=== PATIENT | male | born 1940 | race Caucasian/White ===

== ENCOUNTER 2018-03-25 07:35 | Outpatient (CLI) | payer MEDICARE, OTHER ==
[2018-03-25] MEDS ORDERED: ADENOSINE 60 MG/20 ML VIAL ONE (11:29)
--- NOTE | 2018-03-25 12:14 | NM ---
RADIONUCLIDE STRESS AND REST MYOCARDIAL PERFUSION SCAN WITH CT ATTENUATION CORRECTION AND SPECT IMAGI NG WITH LEFT VENTRICULAR WALL MOTION EVALUATION AND EJECTION FRACTION: HISTORY: Chest pain. Hypertension. FINDINGS: Adenosine protocol. There is heterogeneous uptake of radiotracer throughout the left ventricular myocardium. A large area of markedly diminished uptake involving the inferior wall on the stress images shows significant imp rovement on the rest images with only a small focus of diminished uptake. QGS analysis of gated SPECT images shows no focal wall motion abnormalities. Ejection fraction calcul ated at 58%. IMPRESSION: 1. Abnormal exam. Reversibility at the inferior wall is suggestive of ischemia. 2. Preserved left ventricular ejection fraction. POS: JAMES
== END 2018-03-25 07:36 | disposition home or self-care (01) ==
LOC: NM 07:35
PROVIDERS: ATTEND Internal Medicine
DX: R07.9 Chest pain, unspecified (principal); R94.39 Abnormal result of other cardiovascular function study
CPT/HCPCS: 78452; A9500; 93017; J0153

== ENCOUNTER 2020-05-18 10:57 | Outpatient (CLI) | payer MEDICARE, OTHER ==
[2020-05-18 12:45] LABS: #Eosinphils 0.3 10x3/uL (0.0-0.5); #Monocytes 0.6 10x3/uL (0.0-1.1); #Neutrophils 5.1 10x3/uL (1.5-8.4); %Basophils 0.3 % (0.0-2.0); %Lymphocytes 17.2 % (18.0-47.0); %Neutrophils 69.9 % (40.0-75.0); Hemoglobin 14.1 g/dL (13.5-17.5); Mean Corpuscular HGB CONC 31.3 g/dL (32.0-36.0); Mean Corpuscular Hemoglobin 27.4 pg (27.0-33.0); Mean Corpuscular Volume 87.5 fl (81.2-95.1); Platelet Count 241 10x3/uL (150-450); RBC Distribution Width 15.4 % (11.5-14.5); Red Blood Cell (RBC) Count 5.14 10x6/uL (4.32-5.72); White Blood Cell (WBC) Count 7.3 10x3/uL (3.5-10.5)
[2020-05-18 13:01] LABS: ALT (SGPT) 20 U/L (8-55); AST (SGOT) 17 U/L (5-34); Albumin 4.3 g/dL (3.4-4.8); Alkaline Phosphatase 73 U/L (40-110); Anion Gap 15 mmol/L (10-20); BUN (Urea Nitrogen) 19 mg/dL (8.4-25.7); Bilirubin, Total 0.6 mg/dL (0.2-1.2); Calc. Creatinine Clearance 0 mL/min (70-130); Calcium 10.7 mg/dL (7.8-10.44); Carbon Dioxide 26 mmol/L (23-31); Chloride 103 mmol/L (98-107); Globulin 2.6 g/dL (2.4-3.5); Glucose 170 mg/dL (83-110); Potassium 4.1 mmol/L (3.5-5.1); Protein, Total 6.9 g/dL (5.8-8.1); Sodium 140 mmol/L (136-145)
[2020-05-18 18:02] LABS: SARS-CoV-2 PCR by NAA Not Detected (NotDetected)
== END 2020-05-18 10:58 | disposition home or self-care (01) ==
LOC: LABBT 10:57
PROVIDERS: ATTEND Internal Medicine Cardiovascular Disease
DX: Z01.812 Encounter for preprocedural laboratory examination (principal); Z20.822 Contact with and (suspected) exposure to COVID-19
CPT/HCPCS: 80053; 85025; U0003; U0005; 87635

== ENCOUNTER 2020-05-22 05:49 | Day surgery (SDC) | payer MEDICARE, OTHER ==
[2020-05-18 10:01] VITALS: BMI 30.1
[2020-05-22] MEDS ORDERED: Diazepam 5 MG TAB ONE (06:38)
[2020-05-22] MEDS ORDERED: Fentanyl 100 MCG/2 ML VIAL ONE (07:09)
[2020-05-22] MEDS ORDERED: Midazolam HCl 2 mg/2 ml Vial ONE (07:09)
[2020-05-22] MEDS ORDERED: Iopamidol 370 76% 100 ML VIAL ONE (13:19)
== END 2020-05-22 12:34 | disposition home or self-care (01) ==
LOC: CCL 05:49
PROVIDERS: ATTEND Internal Medicine Cardiovascular Disease
DX: I25.5 Ischemic cardiomyopathy (principal); I25.10 Atherosclerotic heart disease of native coronary artery without angina pectoris; E11.9 Type 2 diabetes mellitus without complications; E78.5 Hyperlipidemia, unspecified; N40.0 Benign prostatic hyperplasia without lower urinary tract symptoms; E66.9 Obesity, unspecified; Z68.30 Body mass index [BMI] 30.0-30.9, adult; Z79.01 Long term (current) use of anticoagulants; Z79.84 Long term (current) use of oral hypoglycemic drugs; Z79.899 Other long term (current) drug therapy; Z86.711 Personal history of pulmonary embolism; Z88.1 Allergy status to other antibiotic agents; Z88.2 Allergy status to sulfonamides; Z88.7 Allergy status to serum and vaccine; Z88.8 Allergy status to other drugs, medicaments and biological substances
CPT/HCPCS: 76942; 93458; 99152; J2250; J3010; Q9967

== ENCOUNTER 2020-06-19 10:09 | Outpatient (CLI) | payer MEDICARE, OTHER | END 2020-06-19 10:10 | disposition home or self-care (01) | LOC: LABBT 10:09 | PROVIDERS: ATTEND Thoracic Surgery (Cardiothoracic Vascular Surgery) | DX: Z01.818 Encounter for other preprocedural examination (principal); Z20.822 Contact with and (suspected) exposure to COVID-19 | CPT/HCPCS: 80048; 85027; 86850; 86900; 86901; 93005; U0003; U0005; 87635; 93010 ==

== ENCOUNTER 2020-06-19 10:15 | Inpatient (IN) | payer MEDICARE, OTHER ==
[2020-06-19 12:10] LABS: Mean Corpuscular HGB CONC 31.2 g/dL (32.0-36.0); Mean Corpuscular Hemoglobin 27.1 pg (27.0-33.0); Mean Platelet Volume 11.2 fl (7.4-10.4); Platelet Count 243 10x3/uL (150-450); RBC Distribution Width 15.6 % (11.5-14.5); Red Blood Cell (RBC) Count 5.16 10x6/uL (4.32-5.72); White Blood Cell (WBC) Count 8.5 10x3/uL (3.5-10.5)
[2020-06-19 12:20] LABS: Anion Gap 15 mmol/L (10-20); BUN (Urea Nitrogen) 22 mg/dL (8.4-25.7); Calc. Creatinine Clearance 0 mL/min (70-130); Calcium 10.7 mg/dL (7.8-10.44); Carbon Dioxide 23 mmol/L (23-31); Chloride 105 mmol/L (98-107); Glucose 137 mg/dL (83-110); Sodium 139 mmol/L (136-145)
[2020-06-20 02:13] LABS: SARS-CoV-2 PCR by NAA Not Detected (NotDetected)
[2020-06-22] MEDS ORDERED: Albumin 5% 500 ML ONE (06:27)
[2020-06-22] MEDS ORDERED: Midazolam HCl 2 mg/2 ml Vial ONE (06:53)
[2020-06-22] MEDS ORDERED: Fentanyl 250 MCG/5 ML VIAL ONE ×3 (07:08→10:05)
[2020-06-22] MEDS ORDERED: Midazolam HCl 5 mg/5 ml Vial ONE ×2 (07:09→10:06)
[2020-06-22] MEDS ORDERED: Papaverine 60 MG/2 ML VIAL ONE (07:36)
[2020-06-22] MEDS ORDERED: Heparin 30,000 units/30 ml VIAL ONE (07:36)
[2020-06-22] MEDS ORDERED: Rocuronium Bromide 10 MG/ML (10ML VIAL) ONE (07:36)
[2020-06-22] MEDS ORDERED: Labetalol HCl 100 MG/20 ML VIAL ONE (07:36)
[2020-06-22] MEDS ORDERED: Ondansetron PF 4 MG/2 ML Vial ONE (07:36)
[2020-06-22] MEDS ORDERED: Aminocaproic Acid 5 GM/20 ML VIAL ONE (07:36)
[2020-06-22] MEDS ORDERED: Sodium Bicarb 50 MEQ/50 ML Abboject 8.4% SYRINGE ONE (07:36)
[2020-06-22] MEDS ORDERED: Magnesium Sulfate 1 GM/2 ML VIAL ONE (07:36)
[2020-06-22] MEDS ORDERED: PROPOFOL 200 MG/20 ML VIAL ONE (07:36)
[2020-06-22] MEDS ORDERED: Nitroglycerin 50 MG/250 ML BOT ONE (07:36)
[2020-06-22] MEDS ORDERED: Calcium Chloride 1 GM/10 ML Abboject SYRINGE ONE (07:36)
[2020-06-22] MEDS ORDERED: Vecuronium 10 MG VIAL ONE (07:36)
[2020-06-22] MEDS ORDERED: Thrombin 5000 UNITS/5 ML VIAL ONE (07:36)
[2020-06-22] MEDS ORDERED: Mannitol 12.5 GM/50 ML ONE (07:36)
[2020-06-22] MEDS ORDERED: Potassium Chloride 60 MEQ/30 ML VIAL ONE (07:36)
[2020-06-22] MEDS ORDERED: Lidocaine 2% PF 100 mg/5 ml Syringe ONE (07:36)
[2020-06-22] MEDS ORDERED: Cardioplegic Soln 1,000 ML BAG ONE (07:36)
[2020-06-22] MEDS ORDERED: Protamine Sulfate 250 MG/25 ML VIAL ONE (07:36)
[2020-06-22] MEDS ORDERED: Heparin 5,000 UNITS/ML VIAL ONE (07:36)
[2020-06-22] MEDS ORDERED: PHENYLEPHRINE-NS 100 MCG/ML 10 ML SYRINGE ONE (08:13)
[2020-06-22] MEDS ORDERED: Insulin Regular 300 UNITS/3 ML VIAL ONE (08:17)
[2020-06-22] MEDS ORDERED: DOPamine 400 MG/D5W 250 ML 250 ML IVPB PRN (11:30)
[2020-06-22] MEDS ORDERED: Nitroglycerin 50 MG/250 ML BOT 250 ML IVPB PRN (11:30)
[2020-06-22] MEDS ORDERED: Mag-Al 1200 mg/1200 mg/30 ML UDCUP PO PRN (11:30)
[2020-06-22] MEDS ORDERED: Post-Op Insulin Drip Protocol IVPB ONE (11:30)
[2020-06-22] MEDS ORDERED: Guaifenesin DM 100-10/5 ML UDCUP PO PRN (11:30)
[2020-06-22] MEDS ORDERED: Norepinephrine 8 MG/0.9% NS 250 ML IVPB PRN (11:30)
[2020-06-22] MEDS ORDERED: HYDROcodone/Acetaminophen 5/325 mg Tablet PO PRN ×2 (11:30)
[2020-06-22] MEDS ORDERED: hydrALAZINE 20 MG/ML VIAL SLOW IVP PRN (11:30)
[2020-06-22] MEDS ORDERED: Hetastarch 6% 500 ML 500 ML IVPB PRN (11:30)
[2020-06-22] MEDS ORDERED: Morphine 4 MG/ML VIAL SLOW IVP PRN (11:30)
[2020-06-22] MEDS ORDERED: Magnesium 2 GM/50 ML 2 GM in Premix Bag 1 BAG IVPB SCH (11:30)
[2020-06-22] MEDS ORDERED: Bisacodyl 10 MG SUPP PR PRN (11:30)
[2020-06-22] MEDS ORDERED: Acetaminophen 325 MG TAB PO PRN (11:30)
[2020-06-22] MEDS ORDERED: Bisacodyl 5 MG TAB PO PRN (11:30)
[2020-06-22] MEDS ORDERED: Ondansetron PF 4 MG/2 ML Vial IVP PRN (11:30)
[2020-06-22] MEDS ORDERED: Fentanyl 100 MCG/2 ML VIAL SLOW IVP PRN ×2 (11:30)
[2020-06-22] MEDS ORDERED: Promethazine HCl 25 MG/ML VIAL IM PRN (11:30)
[2020-06-22] MEDS ORDERED: niCARdipine 25 MG in Sodium Chloride 0.9% 250 ML 250 ML IVPB PRN (11:30)
[2020-06-22] MEDS ORDERED: Nitroglycerin 50 MG/250 ML BOT 250 ML ONE (11:37)
[2020-06-22] MEDS: Lactated Ringer's 1,000 ML IV SCH (11:40)
[2020-06-22 11:41] LABS: Actual Bicarbonate (HCO3a) 21.9 mEq/L (22-28); Base Excess (BEa) -4.2 mEq/L (-2.0 to +3.0); CO2 Tension 43.9 mmHg (35.0-45.0); Calcium, Ionized (arterial) 1.33 mmol/L (1.12-1.30); Carboxyhemoglobin (COHb) 0.7 gm% (0.0-3.0); Hemoglobin (Hb) 13.2 g/dL (14.0-18.0); O2 Tension (PaO2), arterial 83.8 mmHg (> 60.0); Potassium - ABG Lab 3.48 mmol/L (3.70-5.30); pH, Arterial 7.32 (7.35-7.45)
[2020-06-22 11:42] LABS: ALV-art Gradient 289.125 mmHg (0-20); Puncture Site Arterial Line
[2020-06-22] MEDS ORDERED: HUMULIN R 100 UNITS in Sodium Chloride 0.9% 100 ML IVPB SCH (11:45)
[2020-06-22] MEDS ORDERED: Lantus 1000 UNITS/10 ML VIAL SC PRN (11:45)
[2020-06-22] MEDS ORDERED: Dextrose 50% Abboject 50 ML SYRINGE SLOW IVP PRN (11:45)
[2020-06-22] MEDS ORDERED: Insulin Regular 300 UNITS/3 ML VIAL SC PRN (11:45)
[2020-06-22] MEDS ORDERED: Dextrose 5% in Water 1,000 ML IV PRN (11:45)
[2020-06-22 11:55] LABS: #Eosinphils 0.2 thou/uL (0.0-0.7); #Lymphocytes 1.8 thou/uL (1.20-3.40); #Monocytes 0.6 thou/uL (0.11-0.59); #Neutrophils 15.7 thou/uL (1.40-6.50); %Basophils 0.1 % (0.0-1.0); %Eosinophils 1.2 % (0.0-10.0); %Lymphocytes 9.8 % (21.0-51.0); %Monocytes 3.4 % (0.0-10.0); %Neutrophils 85.4 % (42.0-75.0); Hemoglobin 12.5 g/dL (14.0-18.0); Mean Corpuscular HGB CONC 31.2 g/dL (32.0-36.0); Mean Corpuscular Hemoglobin 27.3 pg (27.0-31.0); Mean Corpuscular Volume 87.5 fL (78.0-98.0); Mean Platelet Volume 8.6 fL (7.4-10.4); Platelet Count 165 thou/uL (130-400); RBC Distribution Width 14.7 % (11.5-14.5); Red Blood Cell (RBC) Count 4.58 mill/uL (4.70-6.10); White Blood Cell (WBC) Count 18.3 thou/uL (4.8-10.8)
[2020-06-22] MEDS: Ketorolac Tromethamine 30 MG/ML VIAL IVP SCH ×3 (11:58→23:47)
[2020-06-22 12:13] LABS: Anion Gap 10 mmol/L (10-20); BUN (Urea Nitrogen) 22 mg/dL (8.4-25.7); Calc. Creatinine Clearance 121 mL/min (70-130); Calcium 9.9 mg/dL (7.8-10.44); Carbon Dioxide 24 mmol/L (23-31); Chloride 110 mmol/L (98-107); Glucose 161 mg/dL (83-110); Potassium 3.4 mmol/L (3.5-5.1); Sodium 141 mmol/L (136-145)
[2020-06-22 12:15] LABS: INR-International Normal Ratio 1.1; Prothrombin Time 14.6 sec (12.0-14.7)
[2020-06-22] MEDS: Potassium Chloride 20 MEQ/100 ML PREMIX BAG IVPB PRN ×2 (12:36→18:19)
[2020-06-22] MEDS: CEFAZOLIN 2 GM in Premix Bag 1 BAG IVPB SCH ×2 (14:31→23:52)
[2020-06-22 15:30] VITALS: BMI 32.0
[2020-06-22 17:18] LABS: Actual Bicarbonate (HCO3a) 23.4 mEq/L (22-28); Base Excess (BEa) -2.1 mEq/L (-2.0 to +3.0); CO2 Tension 42.8 mmHg (35.0-45.0); Calcium, Ionized (arterial) 1.28 mmol/L (1.12-1.30); Potassium - ABG Lab 3.57 mmol/L (3.70-5.30); pH, Arterial 7.36 (7.35-7.45)
[2020-06-22 17:19] LABS: Puncture Site Arterial Line
[2020-06-22 18:05] LABS: Potassium 3.6 mmol/L (3.5-5.1)
[2020-06-22] MEDS: Atorvastatin Calcium 20 MG TAB PO SCH (20:21)
[2020-06-22] MEDS: Enoxaparin Sodium 40 MG/0.4 ML SYRINGE SC SCH (20:21)
[2020-06-22] MEDS ORDERED: Famotidine/PF 20 mg/2ml Vial SLOW IVP SCH (21:00)
[2020-06-23] MEDS: Lactated Ringer's 1,000 ML IV SCH (03:10)
[2020-06-23 04:56] LABS: #Lymphocytes 1.5 thou/uL (1.20-3.40); #Monocytes 1.1 thou/uL (0.11-0.59); #Neutrophils 11.7 thou/uL (1.40-6.50); %Basophils 0.1 % (0.0-1.0); %Eosinophils 0.1 % (0.0-10.0); %Lymphocytes 10.7 % (21.0-51.0); %Monocytes 7.6 % (0.0-10.0); %Neutrophils 81.5 % (42.0-75.0); Hemoglobin 12.9 g/dL (14.0-18.0); Mean Corpuscular HGB CONC 30.9 g/dL (32.0-36.0); Mean Corpuscular Hemoglobin 27.5 pg (27.0-31.0); Mean Corpuscular Volume 88.9 fL (78.0-98.0); Mean Platelet Volume 8.5 fL (7.4-10.4); Platelet Count 206 thou/uL (130-400); RBC Distribution Width 15.2 % (11.5-14.5); Red Blood Cell (RBC) Count 4.71 mill/uL (4.70-6.10); White Blood Cell (WBC) Count 14.4 thou/uL (4.8-10.8)
[2020-06-23 05:11] LABS: Anion Gap 11 mmol/L (10-20); BUN (Urea Nitrogen) 15 mg/dL (8.4-25.7); Calc. Creatinine Clearance 125 mL/min (70-130); Calcium 9.3 mg/dL (7.8-10.44); Carbon Dioxide 24 mmol/L (23-31); Chloride 110 mmol/L (98-107); Glucose 130 mg/dL (83-110); Potassium 3.4 mmol/L (3.5-5.1); Sodium 142 mmol/L (136-145)
[2020-06-23] MEDS: Ketorolac Tromethamine 30 MG/ML VIAL IVP SCH ×3 (07:20→17:27)
[2020-06-23] MEDS: Potassium Chloride 20 MEQ/100 ML PREMIX BAG IVPB PRN (07:34)
[2020-06-23] MEDS: CEFAZOLIN 2 GM in Premix Bag 1 BAG IVPB SCH (07:34)
[2020-06-23] MEDS ORDERED: Nitroglycerin 0.4 MG TAB (25 Tab Bottle) SL PRN (07:54)
[2020-06-23] MEDS ORDERED: Mineral Oil ENEMA PR PRN (07:54)
[2020-06-23] MEDS ORDERED: Dextrose 5% in Water 1,000 ML IV PRN (08:15)
[2020-06-23] MEDS ORDERED: Dextrose 50% Abboject 50 ML SYRINGE SLOW IVP PRN (08:15)
[2020-06-23] MEDS: Lantus 1000 UNITS/10 ML VIAL SC SCH ×3 (08:15→20:52)
[2020-06-23] MEDS: Potassium Chloride 10 MEQ TAB PO SCH (08:20)
[2020-06-23] MEDS: Tamsulosin HCl 0.4 MG CAP PO SCH (08:20)
[2020-06-23] MEDS: Famotidine 20 MG TAB PO SCH ×2 (08:21→20:51)
[2020-06-23] MEDS: Furosemide 40 MG TAB PO SCH (08:22)
[2020-06-23] MEDS: Aspirin 325 MG TAB PO SCH (08:22)
[2020-06-23] MEDS: Finasteride 5 MG TAB PO SCH (08:22)
[2020-06-23] MEDS: Enoxaparin Sodium 40 MG/0.4 ML SYRINGE SC SCH ×2 (08:23→20:51)
[2020-06-23] MEDS: Polyethylene Glycol 3350 17 GM Packet PO SCH (08:23)
[2020-06-23] MEDS: Empagliflozin 10 MG TAB PO SCH (09:00)
[2020-06-23] MEDS: Insulin Regular 300 UNITS/3 ML VIAL SC PRN ×3 (11:28→21:21)
[2020-06-23] MEDS: guaiFENesin ER 600 MG TAB PO PRN (17:27)
[2020-06-23] MEDS: Metoprolol Tartrate 25 MG TAB PO SCH (20:51)
[2020-06-23] MEDS: Atorvastatin Calcium 20 MG TAB PO SCH (20:51)
[2020-06-24] MEDS: Ketorolac Tromethamine 30 MG/ML VIAL IVP SCH ×4 (00:36→17:54)
[2020-06-24 04:21] LABS: #Lymphocytes 1.8 thou/uL (1.20-3.40); #Monocytes 1.2 thou/uL (0.11-0.59); #Neutrophils 9.5 thou/uL (1.40-6.50); %Basophils 0.2 % (0.0-1.0); %Eosinophils 0.3 % (0.0-10.0); %Lymphocytes 14.4 % (21.0-51.0); %Monocytes 9.2 % (0.0-10.0); Hemoglobin 12.1 g/dL (14.0-18.0); Mean Corpuscular Hemoglobin 26.8 pg (27.0-31.0); Mean Platelet Volume 9.2 fL (7.4-10.4); Platelet Count 180 thou/uL (130-400); RBC Distribution Width 15.1 % (11.5-14.5); Red Blood Cell (RBC) Count 4.53 mill/uL (4.70-6.10); White Blood Cell (WBC) Count 12.5 thou/uL (4.8-10.8)
[2020-06-24 04:36] LABS: Anion Gap 12 mmol/L (10-20); BUN (Urea Nitrogen) 18 mg/dL (8.4-25.7); Calc. Creatinine Clearance 123 mL/min (70-130); Calcium 9.5 mg/dL (7.8-10.44); Carbon Dioxide 23 mmol/L (23-31); Chloride 108 mmol/L (98-107); Glucose 144 mg/dL (83-110); Sodium 139 mmol/L (136-145)
[2020-06-24] MEDS: Insulin Regular 300 UNITS/3 ML VIAL SC PRN ×3 (05:10→17:19)
[2020-06-24] MEDS: guaiFENesin ER 600 MG TAB PO PRN ×2 (05:10→15:38)
[2020-06-24] MEDS: Lantus 1000 UNITS/10 ML VIAL SC SCH ×2 (08:25→20:55)
[2020-06-24] MEDS: Enoxaparin Sodium 40 MG/0.4 ML SYRINGE SC SCH ×2 (08:27→20:54)
[2020-06-24] MEDS: Aspirin 325 MG TAB PO SCH (08:27)
[2020-06-24] MEDS: Famotidine 20 MG TAB PO SCH ×2 (08:27→20:52)
[2020-06-24] MEDS: Polyethylene Glycol 3350 17 GM Packet PO SCH (08:27)
[2020-06-24] MEDS: Finasteride 5 MG TAB PO SCH (08:28)
[2020-06-24] MEDS: Furosemide 40 MG TAB PO SCH (08:28)
[2020-06-24] MEDS: Potassium Chloride 10 MEQ TAB PO SCH (08:28)
[2020-06-24] MEDS: Metoprolol Tartrate 25 MG TAB PO SCH ×2 (08:28→20:52)
[2020-06-24] MEDS: Empagliflozin 10 MG TAB PO SCH (08:28)
[2020-06-24] MEDS: Tamsulosin HCl 0.4 MG CAP PO SCH (08:28)
[2020-06-24] MEDS: Atorvastatin Calcium 20 MG TAB PO SCH (20:54)
[2020-06-25] MEDS: Ketorolac Tromethamine 30 MG/ML VIAL IVP SCH ×2 (02:02→07:18)
[2020-06-25] MEDS: Potassium Chloride 10 MEQ TAB PO SCH (08:29)
[2020-06-25] MEDS: Aspirin 325 MG TAB PO SCH (08:29)
[2020-06-25] MEDS: Enoxaparin Sodium 40 MG/0.4 ML SYRINGE SC SCH ×2 (08:30→20:10)
[2020-06-25] MEDS: Empagliflozin 10 MG TAB PO SCH (08:30)
[2020-06-25] MEDS: Finasteride 5 MG TAB PO SCH (08:30)
[2020-06-25] MEDS: Famotidine 20 MG TAB PO SCH ×2 (08:30→20:09)
[2020-06-25] MEDS: Furosemide 40 MG TAB PO SCH ×2 (08:31→20:09)
[2020-06-25] MEDS: Metoprolol Tartrate 25 MG TAB PO SCH ×2 (08:31→20:09)
[2020-06-25] MEDS: Tamsulosin HCl 0.4 MG CAP PO SCH (08:32)
[2020-06-25] MEDS: Lantus 1000 UNITS/10 ML VIAL SC SCH ×2 (08:32→21:57)
[2020-06-25] MEDS: Polyethylene Glycol 3350 17 GM Packet PO SCH (08:32)
[2020-06-25] MEDS: Insulin Regular 300 UNITS/3 ML VIAL SC PRN (12:44)
[2020-06-25] MEDS: Atorvastatin Calcium 20 MG TAB PO SCH (20:09)
[2020-06-26 04:44] LABS: Anion Gap 12 mmol/L (10-20); BUN (Urea Nitrogen) 18 mg/dL (8.4-25.7); Calc. Creatinine Clearance 117 mL/min (70-130); Calcium 9.6 mg/dL (7.8-10.44); Carbon Dioxide 27 mmol/L (23-31); Chloride 106 mmol/L (98-107); Glucose 117 mg/dL (83-110); Potassium 4.3 mmol/L (3.5-5.1); Sodium 141 mmol/L (136-145)
[2020-06-26] MEDS: Aspirin 325 MG TAB PO SCH (08:17)
[2020-06-26] MEDS: Potassium Chloride 10 MEQ TAB PO SCH (08:17)
[2020-06-26] MEDS: Enoxaparin Sodium 40 MG/0.4 ML SYRINGE SC SCH ×2 (08:17→20:00)
[2020-06-26] MEDS: Empagliflozin 10 MG TAB PO SCH (08:17)
[2020-06-26] MEDS: Famotidine 20 MG TAB PO SCH ×2 (08:18→20:00)
[2020-06-26] MEDS: Furosemide 40 MG TAB PO SCH ×2 (08:18→20:00)
[2020-06-26] MEDS: Finasteride 5 MG TAB PO SCH (08:18)
[2020-06-26] MEDS: Tamsulosin HCl 0.4 MG CAP PO SCH (08:20)
[2020-06-26] MEDS: Lantus 1000 UNITS/10 ML VIAL SC SCH ×2 (08:20→20:49)
[2020-06-26] MEDS: Polyethylene Glycol 3350 17 GM Packet PO SCH (08:20)
[2020-06-26] MEDS ORDERED: Lisinopril 10 MG TAB PO SCH (09:00)
[2020-06-26] MEDS: Insulin Regular 300 UNITS/3 ML VIAL SC PRN (11:50)
[2020-06-26] MEDS: Atorvastatin Calcium 20 MG TAB PO SCH (20:00)
[2020-06-27] MEDS ORDERED: Rivaroxaban 10 MG TAB PO SCH (09:00)
[2020-06-27] MEDS ORDERED: Lisinopril 10 MG TAB PO SCH (09:00)
[2020-06-27] MEDS: Furosemide 40 MG TAB PO SCH (09:22)
[2020-06-27] MEDS: Potassium Chloride 10 MEQ TAB PO SCH (09:22)
[2020-06-27] MEDS: Famotidine 20 MG TAB PO SCH (09:23)
[2020-06-27] MEDS: Phenazopyridine HCl 100 MG TAB PO SCH ×2 (09:23→15:35)
[2020-06-27] MEDS: Aspirin 325 MG TAB PO SCH (09:23)
[2020-06-27] MEDS: Empagliflozin 10 MG TAB PO SCH (09:23)
[2020-06-27] MEDS: Finasteride 5 MG TAB PO SCH (09:23)
[2020-06-27] MEDS: Lantus 1000 UNITS/10 ML VIAL SC SCH (09:24)
[2020-06-27] MEDS: Tamsulosin HCl 0.4 MG CAP PO SCH (09:25)
[2020-06-27] MEDS: Polyethylene Glycol 3350 17 GM Packet PO SCH (09:25)
[2020-06-27 15:42] VITALS: BP 136/67
[2020-06-27 15:45] VITALS: TEMP 98.1
[2020-06-29 09:09] LABS: Actual Bicarbonate (HCO3a) 21.3 mEq/L (22-28); Analyzer IN Cardio OR; Base Excess (BEa) -4.7 mEq/L (-2.0 to +3.0); CO2 Tension 42.6 mmHg (35.0-45.0); Calcium, Ionized (arterial) 1.25 mmol/L (1.12-1.30); Carboxyhemoglobin (COHb) 0.4 gm% (0.0-3.0); Hemoglobin (Hb) 13.4 g/dL (14.0-18.0); O2 Tension (PaO2), arterial 398.4 mmHg (> 60.0); Potassium - ABG Lab 3.56 mmol/L (3.70-5.30); pH, Arterial 7.32 (7.35-7.45)
[2020-06-29 09:09] LABS: Actual Bicarbonate (HCO3a) 23.8 mEq/L (22-28); Analyzer IN Cardio OR; Base Excess (BEa) -1.7 mEq/L (-2.0 to +3.0); CO2 Tension 43.3 mmHg (35.0-45.0); Calcium, Ionized (arterial) 1.16 mmol/L (1.12-1.30); Carboxyhemoglobin (COHb) 0.3 gm% (0.0-3.0); O2 Tension (PaO2), arterial 403.5 mmHg (> 60.0); Potassium - ABG Lab 3.92 mmol/L (3.70-5.30); pH, Arterial 7.36 (7.35-7.45)
[2020-06-29 09:09] LABS: Actual Bicarbonate (HCO3a) 23.7 mEq/L (22-28); Analyzer IN Cardio OR; Base Excess (BEa) -1.7 mEq/L (-2.0 to +3.0); CO2 Tension 42.9 mmHg (35.0-45.0); Calcium, Ionized (arterial) 1.09 mmol/L (1.12-1.30); Carboxyhemoglobin (COHb) 0.3 gm% (0.0-3.0); Hemoglobin (Hb) 10.8 g/dL (14.0-18.0); O2 Tension (PaO2), arterial 355.8 mmHg (> 60.0); Potassium - ABG Lab 3.57 mmol/L (3.70-5.30); pH, Arterial 7.36 (7.35-7.45)
[2020-06-29 09:09] LABS: Actual Bicarbonate (HCO3a) 21.6 mEq/L (22-28); Analyzer IN Cardio OR; Base Excess (BEa) -4.3 mEq/L (-2.0 to +3.0); CO2 Tension 42.8 mmHg (35.0-45.0); Calcium, Ionized (arterial) 1.26 mmol/L (1.12-1.30); Carboxyhemoglobin (COHb) 0.4 gm% (0.0-3.0); Hemoglobin (Hb) 12.5 g/dL (14.0-18.0); O2 Tension (PaO2), arterial 375.4 mmHg (> 60.0); Potassium - ABG Lab 3.53 mmol/L (3.70-5.30); pH, Arterial 7.32 (7.35-7.45)
[2020-06-29 09:10] LABS: Actual Bicarbonate (HCO3a) 23.2 mEq/L (22-28); Analyzer IN Cardio OR; Base Excess (BEa) -2.5 mEq/L (-2.0 to +3.0); CO2 Tension 43.7 mmHg (35.0-45.0); Calcium, Ionized (arterial) 1.35 mmol/L (1.12-1.30); Carboxyhemoglobin (COHb) 0.1 gm% (0.0-3.0); Hemoglobin (Hb) 10.4 g/dL (14.0-18.0); O2 Tension (PaO2), arterial 295.8 mmHg (> 60.0); Potassium - ABG Lab 3.56 mmol/L (3.70-5.30); pH, Arterial 7.34 (7.35-7.45)
[2020-06-29 09:10] LABS: Actual Bicarbonate (HCO3a) 23.2 mEq/L (22-28); Analyzer IN Cardio OR; Base Excess (BEa) -2.2 mEq/L (-2.0 to +3.0); CO2 Tension 42.4 mmHg (35.0-45.0); Calcium, Ionized (arterial) 1.18 mmol/L (1.12-1.30); Carboxyhemoglobin (COHb) 0.2 gm% (0.0-3.0); Hemoglobin (Hb) 10.1 g/dL (14.0-18.0); O2 Tension (PaO2), arterial 355.5 mmHg (> 60.0); Potassium - ABG Lab 3.73 mmol/L (3.70-5.30); pH, Arterial 7.36 (7.35-7.45)
[2020-06-29 09:11] LABS: Puncture Site Arterial Line
[2020-06-29 09:12] LABS: Puncture Site Arterial Line
[2020-06-29 09:12] LABS: Puncture Site Arterial Line
[2020-06-29 09:12] LABS: Puncture Site Arterial Line
[2020-06-29 09:13] LABS: Puncture Site Arterial Line
[2020-06-29 09:13] LABS: Puncture Site Arterial Line
== END 2020-06-27 17:19 | DRG 236 ==
LOC: SURG A 06-22 05:49 → CCU 06-22 11:41 → 2NO 06-23 21:57
PROVIDERS: ADMIT Thoracic Surgery (Cardiothoracic Vascular Surgery); ATTEND Thoracic Surgery (Cardiothoracic Vascular Surgery)
PROC: 021109W Bypass Coronary Artery, Two Arteries from Aorta with Autologous Venous Tissue, Open Approach (ICD-10-PCS; principal; 2020-06-22)
PROC: 02100Z9 Bypass Coronary Artery, One Artery from Left Internal Mammary, Open Approach (ICD-10-PCS; 2020-06-22)
PROC: 06BQ0ZZ Excision of Left Saphenous Vein, Open Approach (ICD-10-PCS; 2020-06-22)
PROC: 5A1221Z Performance of Cardiac Output, Continuous (ICD-10-PCS; 2020-06-22)
DX: I25.10 Atherosclerotic heart disease of native coronary artery without angina pectoris (principal); I47.1 Supraventricular tachycardia; I48.0 Paroxysmal atrial fibrillation; E11.9 Type 2 diabetes mellitus without complications; Z20.822 Contact with and (suspected) exposure to COVID-19; E78.5 Hyperlipidemia, unspecified; I10 Essential (primary) hypertension; F17.290 Nicotine dependence, other tobacco product, uncomplicated; N40.0 Benign prostatic hyperplasia without lower urinary tract symptoms; Z82.49 Family history of ischemic heart disease and other diseases of the circulatory system; Z79.899 Other long term (current) drug therapy; Z79.84 Long term (current) use of oral hypoglycemic drugs; Z86.711 Personal history of pulmonary embolism; Z86.718 Personal history of other venous thrombosis and embolism; Z79.01 Long term (current) use of anticoagulants; Z88.1 Allergy status to other antibiotic agents; Z88.2 Allergy status to sulfonamides; Z88.7 Allergy status to serum and vaccine; Z88.8 Allergy status to other drugs, medicaments and biological substances; Z91.013 Allergy to seafood
CPT/HCPCS: 36415; 36416; 36430; 71045; 80048; 82805; 85025; 85027; 85610; 85730; 86850; 86900; 86901; 87635; 93005; 93010; 93798; 94002; J0360; J0690; J1642; J1644; J1650; J1815; J1885; J2001; J2150; J2250; J2270; J2405; J2440; J2704; J2720; J3010; J3370; J3475; J3480; J3490; P9045; S0017; S0028; U0003; U0005

== ENCOUNTER 2021-05-17 16:33 | Inpatient (IN) | payer MEDICARE, OTHER ==
[~2021-05-17 16:33] MED LIST: Iopamidol-370 76% 500 ML 1 ML ONE
[2021-05-17 17:23] LABS: Anisocytosis SLIGHT = 6-15 cells (100X) (0-5/hpf); Band 9 % (5-11); Eosinophils 3 % (0-10); Lymphocytes 7 % (21-51); MDiff Complete? YES; Mean Corpuscular HGB CONC 31.1 g/dL (32.0-36.0); Mean Corpuscular Hemoglobin 28.8 pg (27.0-31.0); Mean Corpuscular Volume 92.7 fL (78.0-98.0); Mean Platelet Volume 9.2 fL (7.4-10.4); Metamyelocyte 1 % (0-0); Monocytes 8 % (0-10); Neutrophil 71 % (42-75); Nucleated RBC 2 % (0); Ovalocytes SLIGHT = 2-5 cells (100X) (0-1/hpf); Platelet Count 157 thou/uL (130-400); Platelet Morphology Comment Appears Adequate; Polychromasia MODERATE = 3-4 cells (100X) (0-2/hpf); RBC Distribution Width 16.3 % (11.5-14.5); Red Blood Cell (RBC) Count 3.84 mill/uL (4.70-6.10); White Blood Cell (WBC) Count 15.5 thou/uL (4.8-10.8)
[2021-05-17 17:31] LABS: ALT (SGPT) 82 U/L (8-55); AST (SGOT) 32 U/L (5-34); Albumin 3.6 g/dL (3.4-4.8); Alkaline Phosphatase 90 U/L (40-110); Anion Gap 17 mmol/L (10-20); BUN (Urea Nitrogen) 16 mg/dL (8.4-25.7); Bilirubin, Total 2.7 mg/dL (0.2-1.2); Calc. Creatinine Clearance 0 mL/min (70-130); Calcium 9.3 mg/dL (7.8-10.44); Carbon Dioxide 18 mmol/L (23-31); Chloride 107 mmol/L (98-107); Globulin 2.8 g/dL (2.4-3.5); Glucose 102 mg/dL (83-110); Lipase 27 U/L (8-78); Potassium 4.4 mmol/L (3.5-5.1); Protein, Total 6.4 g/dL (5.8-8.1); Sodium 138 mmol/L (136-145)
[2021-05-17 17:49] LABS: CKMB 1.9 ng/mL (0-6.6)
[2021-05-17] MEDS ORDERED: cefTRIAXone\\ROCEPHIN 2 GM VIAL ONE (19:15)
[2021-05-17] MEDS ORDERED: Enoxaparin Sodium 100 MG/ML SYRINGE ONE (19:33)
[2021-05-17] MEDS ORDERED: Azithromycin 500 MG VIAL ONE (20:02)
[2021-05-17] MEDS ORDERED: HumaLOG 300 UNITS/3 ML VIAL SC PRN ×2 (20:25)
[2021-05-17] MEDS ORDERED: Dextrose 50% Abboject 50 ML SYRINGE SLOW IVP PRN (20:25)
[2021-05-17] MEDS ORDERED: Dextrose 5% in Water 1,000 ML IV PRN (20:25)
[2021-05-17] MEDS ORDERED: Ondansetron ODT 4 MG TAB PO PRN (20:25)
[2021-05-17] MEDS ORDERED: Ondansetron PF 4 MG/2 ML Vial IVP PRN (20:25)
[2021-05-17] MEDS ORDERED: Acetaminophen 650 MG Suppository PR PRN (20:25)
[2021-05-17] MEDS ORDERED: Acetaminophen 325 MG TAB PO PRN (20:25)
[2021-05-17 20:42] LABS: Troponin I 0.141 ng/mL (< 0.028)
[2021-05-17] MEDS ORDERED: hydrALAZINE 20 MG/ML VIAL SLOW IVP PRN (22:09)
[2021-05-17] MEDS: Sodium Chloride 0.9% 1,000 ML IV SCH (23:12)
[2021-05-17 23:41] LABS: Troponin I 0.138 ng/mL (< 0.028)
[2021-05-18 03:44] LABS: Anion Gap 14 mmol/L (10-20); BUN (Urea Nitrogen) 14 mg/dL (8.4-25.7); Calc. Creatinine Clearance 0 mL/min (70-130); Calcium 8.7 mg/dL (7.8-10.44); Carbon Dioxide 19 mmol/L (23-31); Chloride 107 mmol/L (98-107); Glucose 77 mg/dL (83-110); Potassium 3.7 mmol/L (3.5-5.1); Sodium 136 mmol/L (136-145)
[2021-05-18 03:45] LABS: Band 5 % (5-11); Hemoglobin 10.2 g/dL (14.0-18.0); Lymphocytes 11 % (21-51); MDiff Complete? YES; Mean Corpuscular HGB CONC 31.8 g/dL (32.0-36.0); Mean Corpuscular Hemoglobin 29.6 pg (27.0-31.0); Mean Corpuscular Volume 93.2 fL (78.0-98.0); Mean Platelet Volume 9.1 fL (7.4-10.4); Monocytes 11 % (0-10); Neutrophil 73 % (42-75); Platelet Count 165 thou/uL (130-400); Platelet Morphology Comment Appears Adequate; RBC Distribution Width 16.4 % (11.5-14.5); RBC Morphology Normal; Red Blood Cell (RBC) Count 3.45 mill/uL (4.70-6.10); White Blood Cell (WBC) Count 15.2 thou/uL (4.8-10.8)
[2021-05-18] MEDS: Enoxaparin Sodium 120 MG/0.8 ML SYRINGE SC SCH ×2 (05:50→18:34)
[2021-05-18 07:45] LABS: SARS-CoV-2 NAA Rapid Test Not Detected (NotDetected)
[2021-05-18 08:14] LABS: Magnesium 1.5 mg/dL (1.6-2.6)
[2021-05-18] MEDS ORDERED: Phenazopyridine HCl 97.5 MG TABLET PO PRN (08:55)
[2021-05-18] MEDS ORDERED: Oxybutynin 5 MG TAB PO PRN (08:55)
[2021-05-18] MEDS ORDERED: Magnesium Sulfate In Water 4 GM in Premix Bag 1 BAG IVPB SCH (09:00)
[2021-05-18] MEDS ORDERED: Potassium Chloride 20 MEQ TAB PO SCH (09:00)
[2021-05-18] MEDS: cefTRIAXone\\ROCEPHIN 1 GM in Sodium Chloride 0.9% 100 ML IVPB SCH (09:51)
[2021-05-18] MEDS: Docusate 100 MG CAP PO SCH ×2 (09:51→20:49)
[2021-05-18] MEDS: Fluconazole 100 MG TAB PO SCH (09:51)
[2021-05-18] MEDS: Empagliflozin 25 MG TAB PO SCH (09:55)
[2021-05-18] MEDS: Diltiazem HCl 125 MG, Admixture Fee 1 EACH in Sodium Chloride 0.9% 100 ML IVPB SCH (13:18)
[2021-05-18] MEDS: Sodium Chloride 0.9% 1,000 ML IV SCH (13:19)
[2021-05-18] MEDS: Azithromycin 500 MG in Sodium Chloride 0.9% 250 ML 250 ML IVPB SCH (14:24)
[2021-05-18] MEDS: Tamsulosin HCl 0.4 MG CAP PO SCH (20:50)
[2021-05-18] MEDS: Atorvastatin Calcium 20 MG TAB PO SCH (20:50)
[2021-05-18] MEDS: Finasteride 5 MG TAB PO SCH (20:50)
[2021-05-19] MEDS: Diltiazem HCl 125 MG, Admixture Fee 1 EACH in Sodium Chloride 0.9% 100 ML IVPB SCH (01:04)
[2021-05-19] MEDS ORDERED: Melatonin 3 MG TAB PO PRN (01:26)
[2021-05-19 03:59] LABS: #Basophils 0.1 thou/uL (0.0-0.2); #Eosinphils 0.1 thou/uL (0.0-0.7); #Lymphocytes 2.1 thou/uL (1.20-3.40); #Monocytes 1.4 thou/uL (0.11-0.59); #Neutrophils 13.1 thou/uL (1.40-6.50); %Basophils 0.3 % (0.0-1.0); %Eosinophils 0.7 % (0.0-10.0); %Lymphocytes 12.6 % (21.0-51.0); %Monocytes 8.2 % (0.0-10.0); %Neutrophils 78.2 % (42.0-75.0); Hemoglobin 10.5 g/dL (14.0-18.0); Mean Corpuscular HGB CONC 30.7 g/dL (32.0-36.0); Mean Corpuscular Hemoglobin 28.7 pg (27.0-31.0); Mean Corpuscular Volume 93.4 fL (78.0-98.0); Mean Platelet Volume 8.5 fL (7.4-10.4); Platelet Count 229 thou/uL (130-400); RBC Distribution Width 16.9 % (11.5-14.5); Red Blood Cell (RBC) Count 3.65 mill/uL (4.70-6.10); White Blood Cell (WBC) Count 16.7 thou/uL (4.8-10.8)
[2021-05-19 04:20] LABS: Phosphorus 2.6 mg/dL (2.3-4.7)
[2021-05-19 04:22] LABS: ALT (SGPT) 42 U/L (8-55); AST (SGOT) 14 U/L (5-34); Alkaline Phosphatase 76 U/L (40-110); Anion Gap 16 mmol/L (10-20); BUN (Urea Nitrogen) 13 mg/dL (8.4-25.7); Bilirubin, Total 2.1 mg/dL (0.2-1.2); Calc. Creatinine Clearance 129 mL/min (70-130); Calcium 8.9 mg/dL (7.8-10.44); Carbon Dioxide 15 mmol/L (23-31); Chloride 107 mmol/L (98-107); Globulin 2.8 g/dL (2.4-3.5); Glucose 128 mg/dL (83-110); Potassium 3.9 mmol/L (3.5-5.1); Protein, Total 5.8 g/dL (5.8-8.1); Sodium 134 mmol/L (136-145)
[2021-05-19] MEDS: traMADol HCl 50 MG TAB PO PRN ×3 (06:12→20:35)
[2021-05-19] MEDS: Enoxaparin Sodium 120 MG/0.8 ML SYRINGE SC SCH ×2 (06:14→18:15)
[2021-05-19] MEDS: Alogliptin 25 MG TAB PO SCH (09:19)
[2021-05-19] MEDS: Empagliflozin 25 MG TAB PO SCH (09:19)
[2021-05-19] MEDS: Fluconazole 100 MG TAB PO SCH (09:20)
[2021-05-19] MEDS: Docusate 100 MG CAP PO SCH (09:21)
[2021-05-19] MEDS: cefTRIAXone\\ROCEPHIN 1 GM in Sodium Chloride 0.9% 100 ML IVPB SCH ×2 (12:18→15:08)
[2021-05-19] MEDS: Azithromycin 500 MG in Sodium Chloride 0.9% 250 ML 250 ML IVPB SCH ×2 (12:18→15:08)
[2021-05-19 16:10] LABS: Anion Gap 15 mmol/L (10-20); BUN (Urea Nitrogen) 13 mg/dL (8.4-25.7); Calc. Creatinine Clearance 140 mL/min (70-130); Calcium 9.2 mg/dL (7.8-10.44); Carbon Dioxide 16 mmol/L (23-31); Chloride 108 mmol/L (98-107); Glucose 161 mg/dL (83-110); Potassium 4.1 mmol/L (3.5-5.1); Sodium 135 mmol/L (136-145)
[2021-05-19] MEDS: Atorvastatin Calcium 20 MG TAB PO SCH (20:50)
[2021-05-19] MEDS: Finasteride 5 MG TAB PO SCH (20:50)
[2021-05-19] MEDS: Tamsulosin HCl 0.4 MG CAP PO SCH (20:51)
[2021-05-19] MEDS: Senokot S 8.6-50 MG TAB PO SCH (20:51)
[2021-05-20 03:29] LABS: #Eosinphils 0.3 thou/uL (0.0-0.7); #Lymphocytes 2.1 thou/uL (1.20-3.40); #Monocytes 0.9 thou/uL (0.11-0.59); #Neutrophils 8.5 thou/uL (1.40-6.50); %Basophils 0.2 % (0.0-1.0); %Eosinophils 2.3 % (0.0-10.0); %Lymphocytes 17.8 % (21.0-51.0); %Monocytes 7.4 % (0.0-10.0); %Neutrophils 72.3 % (42.0-75.0); Hemoglobin 9.6 g/dL (14.0-18.0); Mean Corpuscular HGB CONC 30.7 g/dL (32.0-36.0); Mean Corpuscular Hemoglobin 28.4 pg (27.0-31.0); Mean Corpuscular Volume 92.7 fL (78.0-98.0); Platelet Count 241 thou/uL (130-400); RBC Distribution Width 16.6 % (11.5-14.5); Red Blood Cell (RBC) Count 3.36 mill/uL (4.70-6.10); White Blood Cell (WBC) Count 11.7 thou/uL (4.8-10.8)
[2021-05-20 03:47] LABS: Anion Gap 12 mmol/L (10-20); BUN (Urea Nitrogen) 12 mg/dL (8.4-25.7); Calc. Creatinine Clearance 144 mL/min (70-130); Calcium 8.9 mg/dL (7.8-10.44); Carbon Dioxide 20 mmol/L (23-31); Chloride 109 mmol/L (98-107); Glucose 131 mg/dL (83-110); Potassium 3.9 mmol/L (3.5-5.1); Sodium 137 mmol/L (136-145)
[2021-05-20] MEDS: traMADol HCl 50 MG TAB PO PRN ×3 (06:17→22:19)
[2021-05-20] MEDS: Enoxaparin Sodium 120 MG/0.8 ML SYRINGE SC SCH (06:23)
[2021-05-20] MEDS: Alogliptin 25 MG TAB PO SCH (09:02)
[2021-05-20] MEDS: Aspirin 81 mg Enteric Coated Tablet PO SCH (09:02)
[2021-05-20] MEDS: Senokot S 8.6-50 MG TAB PO SCH ×2 (09:02→22:16)
[2021-05-20] MEDS: Fluconazole 100 MG TAB PO SCH (09:02)
[2021-05-20] MEDS: Polyethylene Glycol 3350 17 GM Packet PER TUBE SCH (09:10)
[2021-05-20] MEDS: Empagliflozin 25 MG TAB PO SCH (09:10)
[2021-05-20] MEDS: Azithromycin 500 MG in Sodium Chloride 0.9% 250 ML 250 ML IVPB SCH (11:56)
[2021-05-20] MEDS: cefTRIAXone\\ROCEPHIN 1 GM in Sodium Chloride 0.9% 100 ML IVPB SCH (16:37)
[2021-05-20] MEDS: Hydrochlorothiazide 25 MG TAB PO SCH ×2 (17:55→17:56)
[2021-05-20] MEDS: Rivaroxaban 10 MG TAB PO SCH (18:15)
[2021-05-20] MEDS: Atorvastatin Calcium 20 MG TAB PO SCH (22:17)
[2021-05-20] MEDS: Finasteride 5 MG TAB PO SCH (22:17)
[2021-05-20] MEDS: Tamsulosin HCl 0.4 MG CAP PO SCH (22:18)
[2021-05-21] MEDS: traMADol HCl 50 MG TAB PO PRN ×3 (03:41→20:55)
[2021-05-21 05:14] LABS: #Eosinphils 0.7 thou/uL (0.0-0.7); #Lymphocytes 1.8 thou/uL (1.20-3.40); #Monocytes 0.7 thou/uL (0.11-0.59); #Neutrophils 7.3 thou/uL (1.40-6.50); %Basophils 0.2 % (0.0-1.0); %Eosinophils 6.3 % (0.0-10.0); %Lymphocytes 17.3 % (21.0-51.0); %Monocytes 6.9 % (0.0-10.0); %Neutrophils 69.4 % (42.0-75.0); Hemoglobin 10.9 g/dL (14.0-18.0); Mean Corpuscular HGB CONC 31.5 g/dL (32.0-36.0); Mean Corpuscular Hemoglobin 29.2 pg (27.0-31.0); Mean Corpuscular Volume 92.7 fL (78.0-98.0); Mean Platelet Volume 8.1 fL (7.4-10.4); Platelet Count 263 thou/uL (130-400); RBC Distribution Width 16.5 % (11.5-14.5); Red Blood Cell (RBC) Count 3.72 mill/uL (4.70-6.10); White Blood Cell (WBC) Count 10.5 thou/uL (4.8-10.8)
[2021-05-21 05:46] LABS: ALT (SGPT) 26 U/L (8-55); AST (SGOT) 15 U/L (5-34); Alkaline Phosphatase 73 U/L (40-110); Anion Gap 11 mmol/L (10-20); BUN (Urea Nitrogen) 12 mg/dL (8.4-25.7); Bilirubin, Total 1.7 mg/dL (0.2-1.2); Calc. Creatinine Clearance 156 mL/min (70-130); Calcium 9.1 mg/dL (7.8-10.44); Carbon Dioxide 22 mmol/L (23-31); Chloride 107 mmol/L (98-107); Globulin 3.1 g/dL (2.4-3.5); Glucose 118 mg/dL (83-110); Magnesium 1.7 mg/dL (1.6-2.6); Potassium 3.6 mmol/L (3.5-5.1); Protein, Total 6.1 g/dL (5.8-8.1); Sodium 136 mmol/L (136-145)
[2021-05-21] MEDS: Alogliptin 25 MG TAB PO SCH (10:44)
[2021-05-21] MEDS: Senokot S 8.6-50 MG TAB PO SCH ×2 (10:44→20:53)
[2021-05-21] MEDS: Polyethylene Glycol 3350 17 GM Packet PER TUBE SCH (10:44)
[2021-05-21] MEDS: Hydrochlorothiazide 25 MG TAB PO SCH (10:45)
[2021-05-21] MEDS: Aspirin 81 mg Enteric Coated Tablet PO SCH (10:45)
[2021-05-21] MEDS: Fluconazole 100 MG TAB PO SCH (10:45)
[2021-05-21] MEDS: Empagliflozin 25 MG TAB PO SCH (12:01)
[2021-05-21] MEDS: cefTRIAXone\\ROCEPHIN 1 GM in Sodium Chloride 0.9% 100 ML IVPB SCH (14:41)
[2021-05-21] MEDS: Azithromycin 500 MG in Sodium Chloride 0.9% 250 ML 250 ML IVPB SCH (18:45)
[2021-05-21] MEDS: Rivaroxaban 10 MG TAB PO SCH (20:16)
[2021-05-21] MEDS: Cefdinir 300 MG CAP PO SCH (20:54)
[2021-05-21] MEDS: Atorvastatin Calcium 20 MG TAB PO SCH (20:54)
[2021-05-21] MEDS: Tamsulosin HCl 0.4 MG CAP PO SCH (20:55)
[2021-05-21] MEDS: Finasteride 5 MG TAB PO SCH (20:55)
[2021-05-22] MEDS: traMADol HCl 50 MG TAB PO PRN ×3 (01:59→18:52)
[2021-05-22 08:27] LABS: #Eosinphils 0.7 thou/uL (0.0-0.7); #Lymphocytes 1.6 thou/uL (1.20-3.40); #Monocytes 0.6 thou/uL (0.11-0.59); #Neutrophils 6.2 thou/uL (1.40-6.50); %Basophils 0.2 % (0.0-1.0); %Eosinophils 7.5 % (0.0-10.0); %Lymphocytes 17.7 % (21.0-51.0); %Neutrophils 67.6 % (42.0-75.0); Hemoglobin 11.1 g/dL (14.0-18.0); Mean Corpuscular Hemoglobin 28.8 pg (27.0-31.0); Mean Corpuscular Volume 92.8 fL (78.0-98.0); Mean Platelet Volume 7.9 fL (7.4-10.4); Platelet Count 278 thou/uL (130-400); RBC Distribution Width 16.6 % (11.5-14.5); Red Blood Cell (RBC) Count 3.86 mill/uL (4.70-6.10); White Blood Cell (WBC) Count 9.2 thou/uL (4.8-10.8)
[2021-05-22 08:45] LABS: Anion Gap 11 mmol/L (10-20); BUN (Urea Nitrogen) 13 mg/dL (8.4-25.7); Calc. Creatinine Clearance 147 mL/min (70-130); Calcium 8.8 mg/dL (7.8-10.44); Carbon Dioxide 24 mmol/L (23-31); Chloride 107 mmol/L (98-107); Glucose 130 mg/dL (83-110); Potassium 3.9 mmol/L (3.5-5.1); Sodium 138 mmol/L (136-145)
[2021-05-22] MEDS: Cefdinir 300 MG CAP PO SCH (09:37)
[2021-05-22] MEDS: Alogliptin 25 MG TAB PO SCH (09:37)
[2021-05-22] MEDS: Senokot S 8.6-50 MG TAB PO SCH (09:38)
[2021-05-22] MEDS: Polyethylene Glycol 3350 17 GM Packet PER TUBE SCH (09:38)
[2021-05-22] MEDS: Fluconazole 100 MG TAB PO SCH (09:39)
[2021-05-22] MEDS: Aspirin 81 mg Enteric Coated Tablet PO SCH (09:39)
[2021-05-22] MEDS: Empagliflozin 25 MG TAB PO SCH (09:39)
[2021-05-22] MEDS: Hydrochlorothiazide 25 MG TAB PO SCH (10:08)
[2021-05-22 18:13] VITALS: BP 124/81; TEMP 97.1
[2021-05-22] MEDS: Rivaroxaban 10 MG TAB PO SCH (18:52)
== END 2021-05-22 19:54 | DRG 175 ==
LOC: ERS 16:33 → ERHOLD 19:51 → CCU 22:36 → IMCU/EMU 05-18 06:33 → 2NO 05-20 17:22
PROVIDERS: ADMIT Student in an Organized Health Care Education/Training Program; ATTEND Internal Medicine
DX: I26.02 Saddle embolus of pulmonary artery with acute cor pulmonale (principal); I21.A1 Myocardial infarction type 2; J96.01 Acute respiratory failure with hypoxia; I42.9 Cardiomyopathy, unspecified; E87.2 Acidosis; I82.411 Acute embolism and thrombosis of right femoral vein; R04.89 Hemorrhage from other sites in respiratory passages; E87.1 Hypo-osmolality and hyponatremia; E11.9 Type 2 diabetes mellitus without complications; N40.0 Benign prostatic hyperplasia without lower urinary tract symptoms; E78.5 Hyperlipidemia, unspecified; E78.00 Pure hypercholesterolemia, unspecified; Z20.822 Contact with and (suspected) exposure to COVID-19; I10 Essential (primary) hypertension; R91.8 Other nonspecific abnormal finding of lung field; I25.10 Atherosclerotic heart disease of native coronary artery without angina pectoris; J42 Unspecified chronic bronchitis; I48.0 Paroxysmal atrial fibrillation; K80.20 Calculus of gallbladder without cholecystitis without obstruction; E80.6 Other disorders of bilirubin metabolism; K59.00 Constipation, unspecified; E87.6 Hypokalemia; E83.42 Hypomagnesemia; Z79.01 Long term (current) use of anticoagulants; Z88.2 Allergy status to sulfonamides; Z88.7 Allergy status to serum and vaccine; Z91.013 Allergy to seafood; Z79.84 Long term (current) use of oral hypoglycemic drugs; Z79.82 Long term (current) use of aspirin; Z79.4 Long term (current) use of insulin; Z98.890 Other specified postprocedural states; Z95.1 Presence of aortocoronary bypass graft
CPT/HCPCS: 36415; 36416; 71045; 71275; 80048; 80053; 82553; 83690; 83735; 83880; 84100; 84484; 85025; 87040; 93005; 93306; 93970; 96365; 96372; 96375; J0456; J0696; J1650; J3475; J3490; J7050; Q9967

== ENCOUNTER 2021-06-12 11:45 | Outpatient (CLI) | payer MEDICARE, OTHER | END 2021-06-12 11:46 | disposition home or self-care (01) | LOC: PET 11:45 | PROVIDERS: ATTEND Internal Medicine Critical Care Medicine | DX: R91.1 Solitary pulmonary nodule (principal); R19.09 Other intra-abdominal and pelvic swelling, mass and lump | CPT/HCPCS: 78815; A9552 ==

== ENCOUNTER 2022-03-11 07:53 | Outpatient (CLI) | payer MEDICARE, OTHER | END 2022-03-11 07:54 | disposition home or self-care (01) | LOC: BICCT 07:53 | PROVIDERS: ATTEND Internal Medicine Critical Care Medicine | DX: R91.1 Solitary pulmonary nodule (principal); R91.8 Other nonspecific abnormal finding of lung field; K80.20 Calculus of gallbladder without cholecystitis without obstruction; E27.8 Other specified disorders of adrenal gland; J47.9 Bronchiectasis, uncomplicated; J98.11 Atelectasis | CPT/HCPCS: 71250 ==

== ENCOUNTER 2023-03-27 12:32 | Outpatient (CLI) | payer MEDICARE, OTHER | END 2023-03-27 12:33 | disposition home or self-care (01) | LOC: BICCT 12:32 | PROVIDERS: ATTEND Internal Medicine Critical Care Medicine | DX: R91.8 Other nonspecific abnormal finding of lung field (principal); E27.8 Other specified disorders of adrenal gland | CPT/HCPCS: 71250 ==

== ENCOUNTER 2025-01-25 13:17 | Outpatient (CLI) | payer MEDICARE, OTHER | END 2025-01-25 13:18 | disposition home or self-care (01) | LOC: RAD 13:17 | PROVIDERS: ATTEND Internal Medicine Critical Care Medicine | DX: R06.00 Dyspnea, unspecified (principal) | CPT/HCPCS: 71046 ==